=== PATIENT | female | born 2000 | race Caucasian/White ===

== ENCOUNTER 2018-06-22 08:49 | Emergency (ER) | payer OTHER ==
[2018-06-22 09:09] VITALS: BP 121/74
--- NOTE | 2018-06-22 09:33 | ED ---
GI/ HPI - HPI Summary HPI Summary: 17 yr old with multiple ant bites to the legs. The patient accidentally sat on an ant hill Thursday. Presents here with itching and bites to the legs left greater than right and the bites stop where her spandex shorts stopped the ants up on the thighs. - History of Current Complaint Chief Complaint: UCRash Time Seen by Provider: 06/22/18 09:11 Stated Complaint: BUG BITES / SKIN COMPLAINT Hx Last Menstrual Period: 06/01/18 Pain Intensity: 0 - Allergy/Home Medications Allergies/Adverse Reactions: Allergies Allergy/AdvReac Type Severity Reaction Status Date / Time No Known Allergies Allergy Verified 06/22/18 09:09 Home Medications: Home Medications Calamine LOTION* 1 applic TOPICAL Q2H PRN 06/22/18 [History Confirmed 06/22/18] Diphenhydramine HCl/Zinc Acet [Benadryl] 1 cre TOPICAL Q6H PRN 06/22/18 [ History Confirmed 06/22/18] Hydrocortisone 1% CREAM* [Hytone Cream 1%*] 1 applic TOPICAL ONCE 06/22/18 [ History Confirmed 06/22/18] diPHENhydraMINE PO* [Benadryl PO 25 MG TAB*] 25 mg PO Q6H PRN 06/22/18 [History Confirmed 06/22/18] PMH/Surg Hx/FS Hx/Imm Hx Cardiovascular History: Denies: Hx Pacemaker/ICD Sensory History: Denies: Hx Hearing Aid Psychiatric History: Denies: Hx Panic Disorder - Surgical History Surgery Procedure, Year, and Place: Adnoidectomy and Ear Tubes, 2001, [place] Infectious Disease History: No Infectious Disease History: Denies: Traveled Outside the [place] in Last 30 Days - Family History Known Family History: Positive: None - Social History Occupation: Employed Full-time Alcohol Use: None Substance Use Type: Reports: None Smoking Status (MU): Never Smoked Tobacco Review of Systems Constitutional: Negative Positive: Other - ant bites to legs All Other Systems Reviewed And Are Negative: Yes Physical Exam Triage Information Reviewed: Yes Vital Signs On Initial Exam: Initial Vitals Temp Pulse Resp BP Pulse Ox 98.1 F 80 16 121/74 100 06/22/18 09:03 06/22/18 09:03 06/22/18 09:03 06/22/18 09:03 06/22/18 09:03 Vital Signs Reviewed: Yes Appearance: Positive: Well-Appearing, No Pain Distress Skin: Positive: Other - ant bites to the legs without any evidence of cellulitis. Small localized reaction to each bite, and they stop where the shorts stopped them from going up the thigh further. Head/Face: Positive: Normal Head/Face Inspection Neck: Positive: Nontender Respiratory/Lung Sounds: Positive: Clear to Auscultation, Breath Sounds Present Cardiovascular: Positive: RRR. Negative: Murmur Abdomen Description: Negative: CVA Tenderness (R), CVA Tenderness (L) Musculoskeletal: Positive: Strength/ROM Intact Neurological: Positive: Sensory/Motor Intact, Alert, Oriented to Person Place, Time, CN Intact II-III Psychiatric: Positive: Normal - Eric Coma Scale Best Eye Response: 4 - Spontaneous Best Motor Response: 6 - Obeys Commands Best Verbal Response: 5 - Oriented Coma Scale Total: 15 Diagnostics - Vital Signs Vital Signs Temp Pulse Resp BP Pulse Ox 06/22/18 09:03 98.1 F 80 16 121/74 100 - Laboratory Lab Statement: Any lab studies that have been ordered have been reviewed, and results considered in the medical decision making process. GIGU Course/Dx - Course Course Of Treatment: 17 yr old with ant bites - Diagnoses Provider Diagnoses: Allergy to ant bite Discharge - Sign-Out/Discharge Documenting (check all that apply): Patient Departure - Discharge Plan Condition: Good Disposition: HOME Prescriptions: methylPREDNISolone [Medrol Dosepak 4 MG*] 4 mg PO .SEE BIJU INSTRUCTION #1 biju Patient Education Materials: Insect Bite or Sting (ED) Referrals: Mallika Stearns [Primary Care Provider] - Additional Instructions: You can add Zantac 150 mg twice a day to the benadryl use for symptoms control of itch and burning. Benadryl may be used every six hours. 25-50 mg every six hours for itching. - Billing Disposition and Condition Condition: GOOD Disposition: Home
== END 2018-06-22 09:41 | disposition home or self-care (01) ==
LOC: UCCORT 08:49
DX: T78.49XA Other allergy, initial encounter (principal); W57.XXXA Bitten or stung by nonvenomous insect and other nonvenomous arthropods, initial encounter; Y93.89 Activity, other specified; Y92.9 Unspecified place or not applicable
CPT/HCPCS: 99212; G0463